=== PATIENT | male | born 1965 | race Caucasian/White ===

== ENCOUNTER 2020-11-28 15:05 | Emergency (ER) | payer BC, SELFPAY ==
[2020-11-28 15:49] VITALS: BP 116/72; PULSE 81; RESP 16; TEMP 36.8; O2SAT 99; BMI 28.8
--- NOTE | 2020-11-28 16:34 | HMH.EDUTC ---
[facility] [place] Disposition Clinical Impression: Injury of conjunctiva and corneal abrasion of left eye w/o FB Qualifiers: Encounter type: initial encounter Qualified Code(s): S05.02XA - Injury of conjunctiva and corneal abrasion without foreign body, left eye, initial encounter Disposition: Home, Self-Care Condition on Discharge: Good Instructions: How to Instill Eye Drops, DI for Corneal Abrasion, Corneal Abrasion Additional Instructions: Follow up with [facility]. Call them in the morning and try to get a recheck there with in 2 to 3 days. Most of the time, these abrasions heal fine and your vision is not permanently affected, but since the abrasion is over your pupil please make sure you follow up. Use the antibiotic eye drops as directed. Follow up with your primary care physician. Wear good eye protection while your are working from now on out. GO TO THE ER FOR ANY WORSENING SYMPTOMS OR CONCERNS Prescriptions: Ibuprofen [Ibuprofen 800mg Tablet] 800 mg PO Q8HP PRN #30 tab PRN Reason: Moderate Pain Transmission Status: Received by [facility] Sulfacetamide Sodium [Bleph-10] 1 drp EYE-BOTH Q3H 7 Days #1 bottle Transmission Status: Received by [facility] Referrals: Yvonne Aranda [Primary Care Provider] - Forms: Work/School Release Time of Disposition: 16:46 Medical Decision Making - Medical Records Medical records reviewed: No: I reviewed the patient's medical records. - Oni Inquiry Pt receiving controlled substance: No Vital Signs: 11/28/20 15:49 11/28/20 16:58 Temperature 98.3 F 98.4 F Temperature Source Tympanic Pulse Rate 65 Pulse Rate [Right] 81 Respiratory Rate 16 16 Blood Pressure 116/72 Blood Pressure [Right Arm] 116/72 Blood Pressure Mean [Right Arm] 86 02 Sat by Pulse Oximetry 99 Oxygen Delivery Method Room Air Orders (Tests/Meds): ED MEDICATIONS Discontinued Medications Generic Name Dose Route Start Last Admin Trade Name Freq PRN Reason Stop Dose Admin Eye Irrigation Solution 120 ml 11/28/20 17:02 11/28/20 17:05 Eye Wash Irrigation Soln 118ml Bottle OP 11/28/20 17:03 75 ml ONCE ONE Administration Sulfacetamide Sodium 0 ml 11/28/20 17:02 11/28/20 17:05 Sulfacetamide 10% Opth Soln 15ml OP 11/28/20 17:03 1 drop ONCE ONE Administration Tetracaine HCl 0 ml 11/28/20 17:02 11/28/20 17:05 Tetracaine 0.5% Opth Marybel 15ml OP 11/28/20 17:03 1 drops ONCE ONE Administration [facility] [place] HPI - General Stated complaint: possible object in L eye Time Seen by Provider: 11/28/20 16:34 Mode of Arrival: Ambulatory Source of Information: Patient Limitations: No Limitations Description of Symptoms (Recalled from Triage Doc. by RN): pt believes he may have a piece of grass in his eye from doing yard work yesterday. HEENT Symptoms (Recalled from RN notes): Yes (pt believes he may have a piece of grass in his eye) Resp Symptoms (Recalled from RN notes): No Skin Symptoms (Recalled from RN notes): No MS Symptoms (Recalled from RN notes): No Functional Status (Recalled from RN notes): na - History of Present Illness Provider Complaint: He states that since yesterday he has right eye discomfort. He states that he was weedeating and something flew and hit him in the left eye. He denies any vision changes except that his eye is excessivly watering and he has to wipe it to see well. - Related Data Previous Rx's Medication Instructions Recorded Ibuprofen [Ibuprofen 800mg 800 mg PO Q8HP PRN #30 tab 11/28/20 Tablet] Sulfacetamide Sodium [Bleph-10] 1 drp EYE-BOTH Q3H 7 Days #1 bottle 11/28/20 Allergies Allergy/AdvReac Type Severity Reaction Status Date / Time Penicillins Allergy Verified 11/28/20 15:57 - Worker's Comp Is this a Worker's Comp case?: No [facility] History - Hepatitis A Screen Drug use history?: No High risk sexual behaviors?: No History of sexually transmitted infection?: No Currently
[2020-11-28 16:58] VITALS: BP 116/72; PULSE 65; RESP 16; TEMP 36.9
== END 2020-11-28 17:08 | disposition home or self-care (01) ==
PROVIDERS: Emergency Provider Nurse Practitioner Family; PCP Nurse Practitioner Family
DX: S05.02XA Injury of conjunctiva and corneal abrasion without foreign body, left eye, initial encounter (principal); W45.8XXA Other foreign body or object entering through skin, initial encounter; Y92.017 Garden or yard in single-family (private) house as the place of occurrence of the external cause; Z88.0 Allergy status to penicillin
CPT/HCPCS: 99202; G0463